=== PATIENT | female | born 1950 | race Caucasian/White ===

== ENCOUNTER 2022-12-29 04:00 | Emergency (ER) | payer MEDICARE ==
[~2022-12-29] VITALS: Ht 160 cm; Wt 81.1 kg
[2022-12-29] MEDS ORDERED: GLIPIZIDE ER5 MG PO (04:28)
[2022-12-29] MEDS ORDERED: GLUMETZA500 MG PO (04:29)
[2022-12-29] MEDS ORDERED: LIPITOR20 MG (04:29)
[2022-12-29] MEDS ORDERED: HYDROCHLOROTHIA25 MG PO (04:29)
[2022-12-29] MEDS ORDERED: METFORMIN HCL500 MG PO (05:17)
[2022-12-29] MEDS ORDERED: GLIPIZIDE ER10 MG PO (05:17)
[2022-12-29] MEDS ORDERED: HYDROCHLOROTH12.5 MG PO (05:17)
[2022-12-29 08:08] VITALS: BP 128/57
== END 2022-12-29 08:14 | disposition short-term general hospital (02) ==
LOC: ED 04:00
DX: K12.2 Cellulitis and abscess of mouth (principal); E11.9 Type 2 diabetes mellitus without complications; E78.00 Pure hypercholesterolemia, unspecified; Z79.899 Other long term (current) drug therapy; Z79.84 Long term (current) use of oral hypoglycemic drugs; Z20.822 Contact with and (suspected) exposure to COVID-19
CPT/HCPCS: 36415; 70491; 80053; 85025; 96375; 99284-25; J0696; J1100; J3490; J7121; Q9967; U0003